=== PATIENT | male | born 1985 | race Hispanic/Latino ===

== ENCOUNTER 2019-03-18 13:20 | Inpatient (IN) | payer SELFPAY ==
[2019-03-18] VITALS (22 sets, daily range): BP systolic 92–124; BP diastolic 49–79
[~2019-03-18] VITALS: Ht 172.7 cm; Wt 79.6 kg
--- NOTE | 2019-03-18 14:30 | NUR ---
TRANSFER FROM [facility] PATIENT ARRIVED VIA EMS. PATIENT IS AAXO3. C/O RLQ PAIN RATE OF 5. DENIES HAVING N/V. STATES HE HAS BEEN NPO SINCE YESTERDAY. HAS IV TO LAC 18G SL. PATIENT IS IN NO APPARENT DISTRESS AT THIS TIME.
[2019-03-18] MEDS ORDERED: ONDANSETRON HCL 4 MG/2 ML VIAL IVP PRN (14:45)
[2019-03-18] MEDS ORDERED: MORPHINE SULFATE 2 MG/ML 1ML SYG IV PRN (14:45)
[2019-03-18 15:15] LABS: BASOPHILS % (AUTO) 0.3 % (0.0-5.0); EOSINOPHILS % (AUTO) 0.1 % (0.0-8.0); HEMATOCRIT 41.1 % (42-54); LYMPHOCYTES % (AUTO) 16.1 % (21.0-51.0); MEAN CORPUSCULAR HGB CONC 33.6 g/dL (32.0-36.0); MEAN CORPUSCULAR VOLUME 83.5 fL (79-99); MONOCYTES % (AUTO) 8.5 % (3.0-13.0); NEUTROPHILS % (AUTO) 74.6 % (40.0-77.0); PLATELET COUNT (AUTO) 164 K/uL (130-400); RED BLOOD CELL COUNT(AUTO) 4.92 MIL/uL (4.50-6.20); RED CELL DISTRIBUTION WIDTH 12.8 % (11.0-15.5); WHITE BLOOD COUNT (AUTO) 14.1 K/uL (4.8-10.8)
[2019-03-18 15:26] LABS: CREATININE 0.7 mg/dL (0.5-1.5); POTASSIUM 3.8 mmol/L (3.5-5.1)
[2019-03-18 15:28] LABS: INR 1.01 (0.85-1.15); PARTIAL THROMBOPLASTIN TIME 30.1 SEC (26.3-35.5); PROTHROMBIN TIME 10.6 SEC (9.6-11.6)
[2019-03-18] MEDS: LACTATED RINGERS 1000ML 1,000 ML IV SCH ×2 (15:31→21:27)
[2019-03-18] MEDS ORDERED: KETOROLAC TROMETHAMINE 30MG/ML IV SCH (17:30)
[2019-03-18] MEDS ORDERED: KETOROLAC TROMETHAMINE 15MG/ML IV PRN ×2 (17:30→18:00)
[2019-03-18] MEDS ORDERED: MORPHINE SULFATE 4 MG/1ML SYG IV PRN (18:00)
--- NOTE | 2019-03-18 18:49 | NUR ---
SURGERY PATIENT TAKEN TO SURGERY FOR LAP APPENDECTOMY POSSIBLE OPEN. PATIENT HAS BEEN NPO SINCE YESTERDAY.
[2019-03-18] MEDS ORDERED: LIDOCAINE PF 2% 5ML ABBOJECT ONE (18:55)
[2019-03-18] MEDS ORDERED: SUCCINYLCHOLINE 200MG/10ML SYR ONE (18:55)
[2019-03-18] MEDS ORDERED: PROPOFOL 10 MG/ML 20ML VIAL IV ONE (18:56)
[2019-03-18] MEDS ORDERED: ROCURONIUM 10MG/1ML SYR 10 MG/ML ML ONE (18:56)
[2019-03-18] MEDS ORDERED: MIDAZOLAM HCL 1 MG/ML 2ML VIAL ONE (18:56)
[2019-03-18] MEDS ORDERED: ONDANSETRON HCL 4 MG/2 ML VIAL ONE (18:57)
[2019-03-18] MEDS ORDERED: FENTANYL CITRATE PF 50 MCG/1 ML 2ML VIAL ONE ×2 (18:57→19:25)
[2019-03-18] MEDS ORDERED: BUPIVACAINE/PF 0.25% 30ML VIAL IJ ONE (19:07)
[2019-03-18] MEDS ORDERED: GLYCOPYRROLATE 1 MG/5 ML SYRINGE ONE (19:26)
[2019-03-18] MEDS ORDERED: NEOSTIGMINE 5MG/5ML SYR IV ONE (19:26)
[2019-03-18] MEDS: ZOSYN 3.375GM+NS 50ML 50 ML IV SCH (21:24)
[2019-03-18] MEDS: FAMOTIDINE/PF 20 MG/2 ML VIAL IV SCH (21:27)
[2019-03-19] VITALS (8 sets, daily range): BP systolic 97–122; BP diastolic 52–77
[2019-03-19] MEDS: ZOSYN 3.375GM+NS 50ML 50 ML IV SCH ×3 (04:46→20:33)
[2019-03-19 06:55] LABS: MEAN CORPUSCULAR HEMOGLOBIN 27.9 pg (27.0-33.0); MEAN CORPUSCULAR HGB CONC 33.1 g/dL (32.0-36.0); MEAN CORPUSCULAR VOLUME 84.2 fL (79-99); PLATELET COUNT (AUTO) 186 K/uL (130-400); RED BLOOD CELL COUNT(AUTO) 4.63 MIL/uL (4.50-6.20); RED CELL DISTRIBUTION WIDTH 12.9 % (11.0-15.5); WHITE BLOOD COUNT (AUTO) 13.9 K/uL (4.8-10.8)
[2019-03-19 07:03] LABS: CREATININE 0.8 mg/dL (0.5-1.5); POTASSIUM 4.2 mmol/L (3.5-5.1)
[2019-03-19] MEDS: LACTATED RINGERS 1000ML 1,000 ML IV SCH ×2 (08:13→20:33)
[2019-03-19] MEDS: FAMOTIDINE/PF 20 MG/2 ML VIAL IV SCH ×2 (08:14→20:33)
--- NOTE | 2019-03-19 12:19 | NUR ---
D/C PLAN CM spoke to pt regarding d/c planning. Pt is [place] and lives with parents and spouse. States family can assist in care if needed. Plan to home. CM provided community resources packet. No needs verbalized or identified. CM to f/u Addendum: 03/19/19 at 1220 by MARK ROCA CM Amended: Links added.
[2019-03-20] VITALS: BP 114/59
[2019-03-20 03:45] VITALS: BP 116/67
--- NOTE | 2019-03-20 04:57 | NUR ---
ANTIBIOTICS Pt remains on Ivf,no adverse reactions noted.
[2019-03-20] MEDS: LACTATED RINGERS 1000ML 1,000 ML IV SCH ×3 (05:04→21:02)
[2019-03-20] MEDS: ZOSYN 3.375GM+NS 50ML 50 ML IV SCH ×3 (05:04→21:02)
[2019-03-20 06:21] LABS: BASOPHILS % (AUTO) 0.4 % (0.0-5.0); EOSINOPHILS % (AUTO) 0.8 % (0.0-8.0); HEMATOCRIT 37.2 % (42-54); MEAN CORPUSCULAR HEMOGLOBIN 27.9 pg (27.0-33.0); MEAN CORPUSCULAR HGB CONC 33.1 g/dL (32.0-36.0); MEAN CORPUSCULAR VOLUME 84.4 fL (79-99); MONOCYTES % (AUTO) 9.2 % (3.0-13.0); NEUTROPHILS % (AUTO) 65.2 % (40.0-77.0); PLATELET COUNT (AUTO) 169 K/uL (130-400); RED BLOOD CELL COUNT(AUTO) 4.41 MIL/uL (4.50-6.20); RED CELL DISTRIBUTION WIDTH 12.9 % (11.0-15.5); WHITE BLOOD COUNT (AUTO) 9.6 K/uL (4.8-10.8)
[2019-03-20] MEDS: FAMOTIDINE/PF 20 MG/2 ML VIAL IV SCH ×2 (10:18→21:02)
[2019-03-20 11:58] VITALS: BP 123/75
[2019-03-20 16:00] VITALS: BP 115/77
--- NOTE | 2019-03-20 16:00 | NUR ---
Mr lana rankin of dr. flores aware patient appears distended and skin slightly pink states esteban. antibiotic.
--- NOTE | 2019-03-20 19:30 | NUR ---
AMBULATE Pt disconnected from Iv per Chiki Rn,Pt ambulated in the hallway.
[2019-03-20 20:00] VITALS: BP 121/73
[2019-03-20 23:54] VITALS: BP 108/56
[2019-03-21 03:42] VITALS: BP 111/60
--- NOTE | 2019-03-21 03:56 | NUR ---
AFEBRILE Pt afebrile,voiced no complaints of pain or discomfort.
[2019-03-21] MEDS: LACTATED RINGERS 1000ML 1,000 ML IV SCH ×2 (04:16→20:41)
[2019-03-21] MEDS: ZOSYN 3.375GM+NS 50ML 50 ML IV SCH ×3 (04:16→20:40)
[2019-03-21 08:33] VITALS: BP 113/63
[2019-03-21] MEDS: FAMOTIDINE/PF 20 MG/2 ML VIAL IV SCH ×2 (09:12→20:40)
[2019-03-21 12:21] VITALS: BP 120/75
[2019-03-21 16:55] VITALS: BP 130/77
[2019-03-21 19:58] VITALS: BP 127/72
[2019-03-21 23:45] VITALS: BP 123/69
--- NOTE | 2019-03-22 02:14 | NUR ---
PAIN FREE Pt denies pain or discomfort.
[2019-03-22 03:44] VITALS: BP 124/76
[2019-03-22] MEDS: ZOSYN 3.375GM+NS 50ML 50 ML IV SCH ×2 (04:41→13:00)
[2019-03-22 06:07] LABS: BASOPHILS % (AUTO) 0.3 % (0.0-5.0); EOSINOPHILS % (AUTO) 4.7 % (0.0-8.0); HEMATOCRIT 39.5 % (42-54); LYMPHOCYTES % (AUTO) 27.4 % (21.0-51.0); MEAN CORPUSCULAR HEMOGLOBIN 28.1 pg (27.0-33.0); MEAN CORPUSCULAR HGB CONC 33.7 g/dL (32.0-36.0); MEAN CORPUSCULAR VOLUME 83.5 fL (79-99); NEUTROPHILS % (AUTO) 59.3 % (40.0-77.0); PLATELET COUNT (AUTO) 247 K/uL (130-400); RED BLOOD CELL COUNT(AUTO) 4.73 MIL/uL (4.50-6.20); RED CELL DISTRIBUTION WIDTH 12.3 % (11.0-15.5); WHITE BLOOD COUNT (AUTO) 7.6 K/uL (4.8-10.8)
[2019-03-22 06:17] LABS: CREATININE 0.8 mg/dL (0.5-1.5); POTASSIUM 4.3 mmol/L (3.5-5.1)
[2019-03-22 07:00] VITALS: BP 130/79
--- NOTE | 2019-03-22 08:00 | NUR ---
AM SHIFT ASSESSMENT.
[2019-03-22] MEDS: LACTATED RINGERS 1000ML 1,000 ML IV SCH (08:58)
[2019-03-22] MEDS: FAMOTIDINE/PF 20 MG/2 ML VIAL IV SCH (09:00)
--- NOTE | 2019-03-22 10:30 | NUR ---
DENIA HEATON IN TO [facility]. FROM THEIR STANDPOINT CAN BE DISCHARGED AND FOLLOW UP WITH THEM IN 7 DAYS
[2019-03-22 11:00] VITALS: BP 133/87
[2019-03-22] MEDS ORDERED: METR-172 PO (12:22)
[2019-03-22] MEDS ORDERED: LEVO500T89 PO (12:22)
--- NOTE | 2019-03-22 12:30 | NUR ---
SALINE LOCK AND ROBBI REMOVED. PREPARED FOR DISCHARGE
--- NOTE | 2019-03-22 14:45 | NUR ---
DISCHARGED NOW USING TEACH BACK. RX. FOR ABX. GIVEN.WOUND CARE INST. GIVEN .FOLLOW UP APPT. ALSO GIVEN. VERBALIZED UNDERSTANDING OF ALL INFO GIVEN.
== END 2019-03-22 16:55 | disposition home or self-care (01) | DRG 340 ==
LOC: OBSVTOIN 14:24 → 3BH 14:24
PROVIDERS: ADMIT Internal Medicine; ATTEND Internal Medicine
PROC: 0DTJ4ZZ Resection of Appendix, Percutaneous Endoscopic Approach (ICD-10-PCS; principal; 2019-03-18 19:03)
DX: K35.32 Acute appendicitis with perforation, localized peritonitis, and gangrene, without abscess (principal)
CPT/HCPCS: 36415; 80048; 85025; 85027; 85610; 85730; 88304; G0378; J0330; J1885; J2001; J2250; J2405; J2543; J2704; J2710; J3010; J3490; J7030; J7120